=== PATIENT | male | born 1960 | race Hispanic/Latino ===

== ENCOUNTER 2022-11-18 13:30 | Emergency (ER) | payer OTHER ==
--- OUTSIDE RECORDS SUMMARY | 2022-11-18 13:43 | XMS REPORT | Continuity of Care Document ---
:1960 Author Organization [facility] Address [address] [place] [address] Care Team Providers Name Role Phone Asked, No Pcp Primary Care Physician Unavailable Payers Payer Name Policy Type Policy Number Effective Date Expiration Date S ource SELF-PAY CI [id number] Problems Condition Condition Condition Status Onset Resolution Last Treating Co mments Source Name Details Category Date Date Treatment Clinician Date Malignant Malignant Disease Active [facility] neoplasm neoplasm [facility] bronchus bronchus 00 l of left of left upper lobe upper lobe Lung Lung Disease Active 2016-07 [facility] nodule nodule 0 00:00: [facility]ospita 00 l Allergies, Adverse Reactions, Alerts This patient has no known allergies or adverse reactions. Family History Family Member Diagnosis Comments Start Date Stop Date Source Natural brother Heart disease Method [facility] Natural brother Hypertension [facility] Natural brother Lung cancer [facility] Natural father Heart disease [facility] Natural mother Hypertension [facility] Social History Social Habit Start Date Stop Date Quantity Comments Source Gender identity [facility] Sexual orientation [facility] History of tobacco Current smoker [facility] Alcohol intake 2018-09-02 2018-09-02 Current [facility] 00:00:00 00:00:00 non-drinker of Hospital alcohol (finding) Cigarettes smoked 2017-05-21 2017-05-21 [facility] current (pack per 00:00:00 00:00:00 Hospita l day) - Reported Cigarette 2017-05-21 2017-05-21 [facility] pack-years 00:00:00 00:00:00 Hospital Tobacco use and 2017-05-21 2017-05-21 Smokeless [facility] exposure 00:00:00 00:00:00 tobacco non-user Hospital Tobacco Comment 2017-05-21 2017-05-21 smoked 1 pack [facility] 00:00:00 00:00:00 daily Hospital Sex Assigned At [birth year] [facility] 00:00:00 00:00:00 Hospital Smoking Status Start Date Stop Date Source Ex-smoker 2017-05-21 00:00:00 2017-05-21 00:00:00 [facility] Medications Ordered Filled Start Stop Current Ordering Indication Dosage Frequency Signature Comments Components Source Medication Medication Date Date Medication? Clinician (SIG) Name Name acetaminoph Yes 500mg Q6H Take 500 M ethodi en 2-[address] (TYLENOL) 11:22: mouth Hospita 500 MG 33 every 6 l tablet (six) hours as needed for mild pain. lidocaine Yes Apply [facility] (LMX) 5 % 2-[address] cream cream 11:22: Hospit a 33 l ranitidine Yes 150mg Take 150 Me thodi (ZANTAC) 2-[address] 150 MG 11:22: mouth Hospita tablet 33 continuous l ly as needed for heartburn. traMADol Yes 50mg Q8H Take 50 mg [facility] (ULTRAM) 50 1-[address] mg tablet 00:00: every 8 Hospi ta 00 (eight) l hours. lisinopril- Yes 1{tbl} QD Take 1 [facility] hydrochloro 8-[address] thiazide 00:00: mouth once Hos zo (PRINZIDE,Z 00 daily. l ESTORETIC) 10-12.5 mg per tablet Procedures This patient has no known procedures. Plan of Care Planned Activity Planned Date Details Comments Source Future Scheduled 2022-11-04 COVID-19 VACCINE (#1) [facility] Test 10:14:33 [code = COVID-19 VACCINE (#1)] Future Scheduled 2022-11-04 COLONOSCOPY SCREENING [facility] Test 10:14:33 [code = COLONOSCOPY SCREENING] Future Scheduled 2022-11-04 SHINGLES VACCINES (1 Met [facility] Test 10:14:33 of 2) [code = SHINGLES VACCINES (1 of 2)] Future Scheduled 2022-11-04 INFLUENZA VACCINE [facility] Test 10:14:33 [code = INFLUENZA VACCINE] Encounters Start End Encounter Admission Attending Care Care Encounter Source Date/Time Date/Time Type Type Clinicians Facility Department ID 2022-11-17 Outpatient IBNS IBNS [id number]- Sam 13:10:40 [id number] Conor Results This patient has no known results.
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
[2022-11-18] MEDS ORDERED: CYCLOBENZAPRINE 10 MG TAB ONE (16:29)
[2022-11-18] MEDS ORDERED: KETOROLAC 30 MG/ML INJ ONE (16:29)
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
[2022-11-18 17:20] VITALS: TEMP 98.7
[2022-11-18 17:21] VITALS: BP 155/99; O2SAT 100
== END 2022-11-18 17:03 | disposition home or self-care (01) ==
LOC: ER 13:30
DX: S33.5XXA Sprain of ligaments of lumbar spine, initial encounter (principal); V49.40XA Driver injured in collision with unspecified motor vehicles in traffic accident, initial encounter; I10 Essential (primary) hypertension
CPT/HCPCS: 72100; 72220; 96372; 99284